=== PATIENT | female | born 1995 | race Caucasian/White ===

== ENCOUNTER 2022-09-16 05:30 | Inpatient (IN) | payer BC ==
[2022-09-16] MEDS ORDERED: Acetaminophen 500 MG TAB PO PRN (05:51)
[2022-09-16] MEDS ORDERED: Ondansetron PF 4 MG/2 ML Vial IVP PRN (05:51)
[2022-09-16] MEDS ORDERED: Lidocaine 1% (PF) 30 ML VIAL SC PRN (05:51)
[2022-09-16] MEDS ORDERED: Tranexamic Acid 1,000 MG/10 ML VIAL IVP PRN (05:51)
[2022-09-16] MEDS ORDERED: Ibuprofen 800 MG TAB PO PRN (05:51)
[2022-09-16] MEDS ORDERED: Promethazine HCl 25 MG/ML VIAL IM PRN (05:51)
[2022-09-16] MEDS ORDERED: fentaNYL 50 mcg/mL 1 mL Vial SLOW IVP PRN (05:51)
[2022-09-16] MEDS ORDERED: hydrALAZINE 20 MG/ML VIAL SLOW IVP PRN (05:51)
[2022-09-16] MEDS ORDERED: Diphenoxylate HCl/Atropine Tablet PO PRN (05:51)
[2022-09-16] MEDS ORDERED: Carboprost 250 MCG/ML AMP IM PRN (05:51)
[2022-09-16] MEDS ORDERED: Misoprostol 200 MCG TAB PR PRN (05:51)
[2022-09-16] MEDS ORDERED: NS w/ Oxytocin 30 units 500 ML IV SCH ×3 (06:00)
[2022-09-16 06:49] VITALS: BMI 33.8
[2022-09-16 07:00] LABS: Hematocrit 34.9 % (34.9-44.5); Hemoglobin 12.1 g/dL (12.0-15.5); Mean Corpuscular HGB CONC 34.7 g/dL (32.0-36.0); Mean Corpuscular Hemoglobin 29.4 pg (27.0-33.0); Mean Corpuscular Volume 84.7 fl (81.6-98.3); Mean Platelet Volume 10.5 fl (7.4-10.4); Platelet Count 172 10x3/uL (150-450); RBC Distribution Width 13.2 % (11.5-14.5); Red Blood Cell (RBC) Count 4.12 10x6/uL (3.90-5.03); White Blood Cell (WBC) Count 10.4 10x3/uL (3.5-10.5)
[2022-09-16 07:45] LABS: HBSAg Index 0.18 S/CO (0-0.99); Hep B Surf Ag - L&D Non-Reactive S/CO (NonReactive); Syphilis Antibody Nonreactive (Nonreactive); Syphilis Antibody Index 0.05 S/CO (<1.00 Non-Reactive)
[2022-09-16] MEDS ORDERED: Labetalol HCl 200 MG TAB PO SCH ×2 (14:15→21:00)
[2022-09-16] MEDS: Lactated Ringer's 1,000 ML IV SCH (20:27)
[2022-09-16] MEDS ORDERED: NIFEdipine XL 30 MG TAB PO SCH (21:00)
[2022-09-17] MEDS ORDERED: fentaNYL/Ropivacaine Epidural 100 ML ONE (00:34)
[2022-09-17] MEDS ORDERED: ePHEDrine Sulfate 50 MG/10 ML VIAL SLOW IVP PRN (01:17)
[2022-09-17] MEDS ORDERED: Ondansetron PF 4 MG/2 ML Vial IVP PRN (01:17)
[2022-09-17] MEDS ORDERED: Moisturizing Cream (Eucerin) 113 GM JAR TOP PRN (01:17)
[2022-09-17] MEDS ORDERED: Promethazine HCl 25 MG/ML VIAL IM PRN (01:17)
[2022-09-17] MEDS ORDERED: Lactated Ringer's 500 ML IV PRN (01:17)
[2022-09-17] MEDS ORDERED: Naloxone HCl 0.4 mg/ml Vial IVP PRN ×2 (01:17)
[2022-09-17] MEDS ORDERED: diphenhydrAMINE 50 MG/ML VIAL IVP PRN (01:17)
[2022-09-17] MEDS ORDERED: Acetaminophen 325 MG TAB PO PRN (01:17)
[2022-09-17] MEDS ORDERED: Communication Order-Pharmacy FS SCH (01:30)
[2022-09-17] MEDS ORDERED: fentaNYL 2 mcg/Ropivacaine 0.2% Epidural 100 ML CADD EPIDURAL SCH (01:30)
[2022-09-17] MEDS ORDERED: Terbutaline Sulfate 1 MG/ML VIAL ONE (02:50)
[2022-09-17] MEDS ORDERED: Azithromycin 500 MG VIAL ONE (04:36)
[2022-09-17] MEDS ORDERED: CEFAZOLIN 2 GM VIAL ONE (04:37)
[2022-09-17] MEDS ORDERED: Bicitra 30 ML UDCUP PO PRN (04:39)
[2022-09-17] MEDS ORDERED: Famotidine/PF 20 mg/2ml Vial SLOW IVP PRN (04:39)
[2022-09-17] MEDS ORDERED: CEFAZOLIN 2 GM in Sodium Chloride 0.9% 100 ML IVPB SCH (04:45)
[2022-09-17] MEDS ORDERED: Azithromycin 500 MG in Sodium Chloride 0.9% 250 ML 250 ML IVPB SCH (04:45)
[2022-09-17] MEDS ORDERED: Morphine PF 10 MG/10 ML VIAL ONE (05:01)
[2022-09-17] MEDS ORDERED: Chloroprocaine 3% PF 20 ML VIAL ONE (05:01)
[2022-09-17] MEDS ORDERED: Oxytocin 10 UNITS/ML VIAL ONE ×2 (05:23→05:51)
[2022-09-17] MEDS ORDERED: PHENYLEPHRINE-NS 100 MCG/ML 10 ML SYRINGE ONE ×4 (05:31→06:11)
[2022-09-17] MEDS ORDERED: Dexamethasone 4 mg/ml Vial ONE (05:42)
[2022-09-17] MEDS ORDERED: Phenylephrine 40 MG/NS 250 ML 250 ML ONE (06:05)
[2022-09-17] MEDS ORDERED: Boostrix 0.5 ML (Tdap) VIAL (>/=7 yrs of age) IM ONE (06:51)
[2022-09-17] MEDS ORDERED: hydrALAZINE 20 MG/ML VIAL SLOW IVP PRN (06:51)
[2022-09-17] MEDS ORDERED: Misoprostol 200 MCG TAB PR PRN (06:51)
[2022-09-17 07:32] LABS: D-Dimer Test 3.33 mg/L FEU (0.19-0.50); PTT 29.9 sec (22.0-33.0)
[2022-09-17 08:42] LABS: RapidComm Collect By CBN
[2022-09-17 08:43] LABS: RapidComm Collect By CBN; pH (Cord, venous) 7.362 (7.250-7.350)
[2022-09-17 09:07] LABS: Hematocrit 27.8 % (34.9-44.5); Hemoglobin 9.3 g/dL (12.0-15.5)
[2022-09-17] MEDS: Ketorolac Tromethamine 30 MG/ML VIAL IVP SCH ×3 (11:56→23:38)
[2022-09-17 12:05] LABS: Hematocrit 26.6 % (34.9-44.5); Hemoglobin 8.9 g/dL (12.0-15.5)
[2022-09-17] MEDS: Misoprostol 100 MCG TAB VAG SCH ×3 (17:10→23:31)
[2022-09-17] MEDS: Lactated Ringer's 1,000 ML IV SCH ×2 (17:11→23:31)
[2022-09-17] MEDS: Ferrous Sulfate 325 MG TAB PO SCH (17:14)
[2022-09-18] MEDS: Misoprostol 100 MCG TAB VAG SCH ×7 (00:09→16:08)
[2022-09-18 04:54] LABS: Hematocrit 21.5 % (34.9-44.5); Hemoglobin 7.3 g/dL (12.0-15.5); Mean Corpuscular Hemoglobin 29.6 pg (27.0-33.0); Mean Platelet Volume 10.7 fl (7.4-10.4); Platelet Count 110 10x3/uL (150-450); RBC Distribution Width 13.3 % (11.5-14.5); Red Blood Cell (RBC) Count 2.47 10x6/uL (3.90-5.03); White Blood Cell (WBC) Count 12.9 10x3/uL (3.5-10.5)
[2022-09-18] MEDS: Ketorolac Tromethamine 30 MG/ML VIAL IVP SCH (06:05)
[2022-09-18] MEDS: Lactated Ringer's 1,000 ML IV SCH (06:27)
[2022-09-18] MEDS: Simethicone Chewable 80 MG TAB PO PRN ×2 (09:11→20:01)
[2022-09-18] MEDS: Ferrous Sulfate 325 MG TAB PO SCH (09:11)
[2022-09-18] MEDS: Docusate 100 MG CAP PO PRN ×2 (09:11→20:01)
[2022-09-18] MEDS ORDERED: Acetaminophen 500 MG TAB PO SCH (09:45)
[2022-09-18] MEDS: Prenatal Vitamin 1 TAB PO SCH (10:21)
[2022-09-18] MEDS: Acetaminophen 500 MG TAB PO SCH ×3 (10:22→20:01)
[2022-09-18 11:50] LABS: Hematocrit 22.5 % (34.9-44.5); Hemoglobin 7.5 g/dL (12.0-15.5)
[2022-09-18] MEDS: Ibuprofen 800 MG TAB PO SCH ×2 (13:00→22:05)
[2022-09-18] MEDS ORDERED: Iron, Sodium Ferric Gluconate 125 MG in Sodium Chloride 0.9% 100 ML IVPB SCH (14:00)
[2022-09-18] MEDS ORDERED: HYDROcodone/Acetaminophen 5/325 mg Tablet PO SCH (15:00)
[2022-09-19] MEDS: Acetaminophen 500 MG TAB PO SCH ×2 (04:09→09:58)
[2022-09-19 04:51] VITALS: BP 136/87; TEMP 98
[2022-09-19] MEDS: Ibuprofen 800 MG TAB PO SCH (05:59)
[2022-09-19] MEDS: Ferrous Sulfate 325 MG TAB PO SCH (09:57)
[2022-09-19] MEDS: Prenatal Vitamin 1 TAB PO SCH (09:58)
[2022-09-19] MEDS: Docusate 100 MG CAP PO PRN (09:58)
== END 2022-09-19 12:05 | disposition home or self-care (01) | DRG 787 ==
LOC: CSHLD 05:34 → CSHPP 09-17 09:20
PROVIDERS: ADMIT Obstetrics & Gynecology; ATTEND Advanced Practice Midwife
PROC: 10D00Z1 Extraction of Products of Conception, Low, Open Approach (ICD-10-PCS; principal; 2022-09-17)
DX: O10.92 Unspecified pre-existing hypertension complicating childbirth (principal); D62 Acute posthemorrhagic anemia; O72.1 Other immediate postpartum hemorrhage; Z79.899 Other long term (current) drug therapy; Z3A.37 37 weeks gestation of pregnancy; Z37.0 Single live birth; O76 Abnormality in fetal heart rate and rhythm complicating labor and delivery; O32.8XX0 Maternal care for other malpresentation of fetus, not applicable or unspecified; O90.81 Anemia of the puerperium
CPT/HCPCS: 36415; 51702; 82805; 85014; 85018; 85027; 85049; 85300; 85362; 85379; 85384; 85610; 85730; 86780; 86850; 86900; 86901; 87340; J1100; J1885; J2274; J2401; J2590; J2916; J3010; J3105; J3490; J7120